=== PATIENT | female | born 1990 | race Two or more races ===

== ENCOUNTER 2024-05-09 17:04 | Emergency (ER) | payer MEDICAID, OTHER ==
[~2024-05-09] VITALS: Ht 154.9 cm; Wt 97.1 kg
[2024-05-09 17:53] VITALS: TEMP 98.1
[2024-05-09] MEDS: IBUPROFEN 400 MG TABLET PO ONE (18:10)
[2024-05-09] MEDS ORDERED: ACETAMINOPHEN ES 500 MG TABLET PO ONE (19:00)
[2024-05-09 19:19] VITALS: BP 117/80; O2SAT 98
== END 2024-05-09 19:22 | disposition home or self-care (01) ==
LOC: ER 17:05
DX: S43.402A Unspecified sprain of left shoulder joint, initial encounter (principal); S89.92XA Unspecified injury of left lower leg, initial encounter; W18.39XA Other fall on same level, initial encounter; Y93.89 Activity, other specified; Y92.89 Other specified places as the place of occurrence of the external cause; Y99.8 Other external cause status
CPT/HCPCS: 73030-TC; 73564-TC